=== PATIENT | female | born 1985 | race Caucasian/White ===

== ENCOUNTER → 2021-09-02 12:27 | Outpatient (CLI) | payer MEDICARE, MEDICAID, SELFPAY ==
[2021-09-02 13:58] LABS: Free T4, Direct Thyroxine 0.96 ng/dL (0.78-2.19)
[2021-09-02 14:00] LABS: Prolactin 21.2 ng/mL (3.0-18.6)
[2021-09-02 14:12] LABS: Thyroid Stimulating Hormone 4.11 uIU/mL (0.47-4.68)
[2021-09-02 19:11] LABS: Follicle Stimulating Hormone 48.9 mIU/mL
== END ==
PROVIDERS: Referring Provider Obstetrics & Gynecology; Visit Provider Obstetrics & Gynecology
DX: N91.1 Secondary amenorrhea (principal)
CPT/HCPCS: 36415; 83001; 84146; 84439; 84443

== ENCOUNTER → 2021-10-06 10:27 | Outpatient (CLI) | payer OTHER, SELFPAY ==
[2021-10-06 13:02] LABS: Prolactin 11.6 ng/mL (3.0-18.6)
== END ==
PROVIDERS: Referring Provider Obstetrics & Gynecology; Visit Provider Obstetrics & Gynecology
DX: N91.1 Secondary amenorrhea (principal)
CPT/HCPCS: 36415; 83001; 84146

== ENCOUNTER 2022-02-09 14:00 | Emergency (ER) | payer MEDICARE, MEDICAID, SELFPAY ==
[2022-02-09 14:08] VITALS: BP 154/94; PULSE 89; RESP 18; TEMP 36.3; O2SAT 100; BMI 40.7
--- NOTE | 2022-02-09 14:12 | DI.RAD.S_ITS ---
PROCEDURE: XR FOREARM LT 2V INDICATIONS: FOOSH TECHNIQUE: 2 views of the forearm were acquired. COMPARISON: None. FINDINGS: Bones: There is a nondisplaced fracture through radial head extending to its articulation with capitellum. No other fracture or dislocation is seen. No suspicious bony lesions. Soft tissues: No suspicious soft tissue calcifications or masses. Displacement of anterior and posterior fat pad is seen consistent with moderate to large joint effusion. IMPRESSION: Nondisplaced radial head fracture. No other fracture or dislocation is seen in left forearm. Moderate to large left elbow joint effusion. Dictated by: Aureliano Silva M.D. on 02/09/2022 at 14:58 Approved by: Aureliano Silva M.D. on 02/09/2022 at 14:59
--- NOTE | 2022-02-09 14:12 | DI.RAD.S_ITS ---
PROCEDURE: XR ELBOW LT MIN 3V INDICATIONS: FOOSH TECHNIQUE: 4 views of the elbow were acquired. COMPARISON: None. FINDINGS: Bones: Nondisplaced fractures involving radial head is seen extending to its articulation with capitellum. No other fracture or dislocation. No suspicious bony lesions. Soft tissues: Large joint effusion is seen. No suspicious soft tissue calcifications. IMPRESSION: Nondisplaced radial head fracture with moderate to large elbow joint effusion. Dictated by: Aureliano Silva M.D. on 02/09/2022 at 15:00 Approved by: Aureliano Silva M.D. on 02/09/2022 at 15:00
[2022-02-09] MEDS: OXYCODONE/ACETAMINOPHEN 5/325 TABLET 1 TAB PO (15:15)
[2022-02-09] MEDS: KETOROLAC 30 MG/ML VIAL 15 MG IM (15:15)
[2022-02-09] MEDS: OXYCODONE/APAP 5/325 PREPACK 1 BOTTLE MISC (15:46)
--- NOTE | 2022-02-09 18:32 | ED.UPPEXIN ---
HPI - Extremity Injury (Upper) <WHITNEY Andrews - Last Filed: 02/09/22 18:41> General Chief Complaint: Extremity Injury, Upper Stated Complaint: Fall, Left Arm Pain Time Seen by Provider: 02/09/22 15:03 Source: patient Mode of arrival: Ambulatory History of Present Illness HPI narrative: This is a 36-year-old left-handed female who presents to the emergency department after she had a fall down this depth and odor left hand out to catch herself and states that she had sudden elbow pain afterwards. She states it is painful at rest, cannot flex and extend without significant pain, endorses swelling in her elbow, states that she took ibuprofen 200 mg this morning. She denies any other medications, she denies any sensation changes distal to her left elbow, denies any wrist pain or shoulder pain. She denies any loss of consciousness or other injury. She is able to wiggle her fingertips, she denies any numbness or tingling in her arm. 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 30 days #90 caps oxycodone-acetaminophen 5 mg-325 1 tab PO TID PRN pain #10 tabs 02/09/22 mg tablet (Percocet) Allergies Allergy/AdvReac Type Severity Reaction Status Date / Time Cephalosporins Allergy Severe RASH Verified 02/09/22 14:08 [CEPHALOSPORINS] cephalexin Allergy Mild face Verified 02/09/22 14:08 turned red and hot Penicillins Allergy Mild HIVES Verified 02/09/22 14:08 adhesive Allergy Unknown RASH Verified 02/09/22 14:08 W/PLASTIC TAPE; CAN USE PAPER OR SILK TAPE hydrocodone Allergy Unknown NO Verified 02/09/22 14:08 VICODIN, CAN TAKE HYDROCODONE & TYLENOL, RASH Review of Systems <WHITNEY Andrews - Last Filed: 02/09/22 18:41> Review of Systems Narrative: General: denies fever, chills Head/Neck: denies headache, neck pain Eyes: denies visual changes, eye pain Cardio: denies chest pain, palpitations Respiratory: denies shortness of breath, cough GI: denies abdominal pain, nausea, vomiting, or diarrhea : denies dysuria, hematuria or flank pain MSK: Endorses left elbow pain, swelling, denies any muscle weakness or sensation changes distally Skin: denies rash, itching or open wound Neuro: denies numbness, tingling, dizziness Patient History <WHITNEY Andrews - Last Filed: 02/09/22 18:41> Medical History Vaginal delivery Surgical History History of left salpingo-oophorectomy Social History Smoking Status: Current every day smoker Smoking Status: Current every day smoker tobacco type: cigarettes and vaping alcohol intake frequency: holidays/special occasions only Substance Use Type: marijuana Exam <WHITNEY Andrews - Last Filed: 02/09/22 18:41> Narrative Exam Narrative: Independently reviewed vitals signs and nursing notes. General: cooperative, comfortable, in no acute distress, well groomed Head: atraumatic, symmetrical facial expressions Neck: supple Eyes: equal round and reactive, EOMI, conjunctiva normal Nose: nares patent, no rhinorrhea Mouth/Throat: moist mucus membranes Cardiovascular: regular rate and rhythm, no peripheral edema, warm extremities Respiratory: normal effort, able to speak in complete sentences, no audible wheezing, stridor, or rales. No retractions or tachypnea. GI: abdomen soft, nontender to palpation, nondistended, no masses, no exquisite tenderness with exam, without guarding or rebound. MSK: moves all extremities, neurovascularly intact, left shoulder without any tenderness, left wrist left hand and left fingers all without any abnormal findings, left elbow is edematous, tenderness on the anterior aspect radial side, pain in her forearm when wiggling fingers, radial pulse is 2 +, no open wound, ecchymosis present on the anterior aspect of her elbow Skin: brisk capillary refill, no rash, no erythema Neuro: normal speech and cognition, A&O x3 Psych: mental status is grossly normal, congruent mood, normal affect, pleasant and cooperative Initial Vital Signs Initial Vital Signs: Vital Signs Temperature 97.4 F L 02/09/22 14:08 Pulse Rate 89 02/09/22 14:08 Respiratory Rate 18 02/09/22 14:08 Blood Pressure 154/94 H 02/09/22 14:08 Pulse Oximetry 100 02/09/22 14:08 Oxygen Delivery Method 02/09/22 14:08 <Flavia Moore DO - Last Filed: 02/10/22 07:37> Initial Vital Signs Initial Vital Signs: Vital Signs Temperature 97.4 F L 02/09/22 14:08 Pulse Rate 89 02/09/22 14:08 Respiratory Rate 18 02/09/22 14:08 Blood Pressure 154/94 H 02/09/22 14:08 Pulse Oximetry 100 02/09/22 14:08 Oxygen Delivery Method 02/09/22 14:08 Procedures <WHITNEY Andrews - Last Filed: 02/09/22 18:41> Orthopedic Splinting/Casting Injury #1: Side: left Upper Extremity Injury Location: elbow Upper Extremity Immobilizer: sling/shoulder immobilizer and posterior splint Post splinting neuro exam: intact and no change Post splinting vascular exam: intact Placed by: Provider Additional Comments: Patient was fitted in a sling after posterior long-arm splint applied. Copious amount of padding was used especially over the elbow, 4 in ortho glass was used on the posterior and wrapped with 3 in [place] wrap at approximately 100?. Patient tolerated well. Course <WHITNEY Andrews - Last Filed: 02/09/22 18:41> Orders Ordered: Discontinued Medications Ketorolac Tromethamine (Ketorolac 30 Mg/Ml Vial) 15 mg IM NOW ONE Stop: 02/09/22 15:09 Last Admin: 02/09/22 15:15 Dose: 15 mg Documented By: CARMEN Oxycodone/Acetaminophen (Oxycodone/Acetaminophen 5/325 Tablet) 1 tab PO NOW ONE Stop: 02/09/22 15:09 Last Admin: 02/09/22 15:15 Dose: 1 tab Documented By: CARMEN Oxycodone/Acetaminophen (Oxycodone/Apap 5/325 Prepack) 1 bottle MISC SEEINSTR ONE Stop: 02/09/22 15:36 Last Admin: 02/09/22 15:46 Dose: 1 bottle Documented By: AT Vital Signs Vital signs: Vital Signs - 8 hr 02/09/22 14:08 Temperature 97.4 F L Pulse Rate 89 Respiratory Rate 18 Blood Pressure 154/94 H Pulse Oximetry 100 Oxygen Delivery Method Room Air <Flavia Moore DO - Last Filed: 02/10/22 07:37> Orders Ordered: Discontinued Medications Ketorolac Tromethamine (Ketorolac 30 Mg/Ml Vial) 15 mg IM NOW ONE Stop: 02/09/22 15:09 Last Admin: 02/09/22 15:15 Dose: 15 mg Documented By: EB Oxycodone/Acetaminophen (Oxycodone/Acetaminophen 5/325 Tablet) 1 tab PO NOW ONE Stop: 02/09/22 15:09 Last Admin: 02/09/22 15:15 Dose: 1 tab Documented By: EB Oxycodone/Acetaminophen (Oxycodone/Apap 5/325 Prepack) 1 bottle MISC SEEINSTR ONE Stop: 02/09/22 15:36 Last Admin: 02/09/22 15:46 Dose: 1 bottle Documented By: AT Vital Signs Vital signs: Vital Signs - 8 hr 02/09/22 14:08 Temperature 97.4 F L Pulse Rate 89 Respiratory Rate 18 Blood Pressure 154/94 H Pulse Oximetry 100 Oxygen Delivery Method Room Air MDM - Extremity Injury (Upper) <Aurora Mendes [facility] - Last Filed: 02/09/22 18:41> Imaging Data Extremity x-ray #1: Radiologist's Impression: PROCEDURE:? XR FOREARM LT 2V ? INDICATIONS:? FOOSH ? TECHNIQUE:? 2 views of the forearm were acquired.? ? COMPARISON:? None. ? FINDINGS:? ? Bones:? There is a nondisplaced fracture through radial head extending to its articulation with capitellum.? No other fracture or dislocation is seen.? No suspicious bony lesions.? ? Soft tissues:? No suspicious soft tissue calcifications or masses.? Displacement of anterior and posterior fat pad is seen consistent with moderate to large joint effusion. ? ? IMPRESSION:? Nondisplaced radial head fracture.? No other fracture or dislocation is seen in left forearm.? Moderate to large left elbow joint effusion. ? ? ? Dictated by: Aureliano Silva M.D. on 02/09/2022 at 14:58 ? ? Approved by: Aureliano Silva M.D. on 02/09/2022 at 14:59 ? Extremity x-ray #2: Radiologist's Impression: PROCEDURE:? XR ELBOW LT MIN 3V ? INDICATIONS:? FOOSH ? TECHNIQUE:? 4 views of the elbow were acquired.? ? COMPARISON:? None. ? FINDINGS:? ? Bones:? Nondisplaced fractures involving radial head is seen extending to its articulation with capitellum.? No other fracture or dislocation.? No suspicious bony lesions.? ? Soft tissues:? Large joint effusion is seen.? No suspicious soft tissue calcifications.? ? ? IMPRESSION:? Nondisplaced radial head fracture with moderate to large elbow joint effusion. ? ? Dictated by: Aureliano Silva M.D. on 02/09/2022 at 15:00 ? ? Approved by: Aureliano Silva M.D. on 02/09/2022 at 15:00 ? MDM Narrative Medical decision making narrative: This is a 36-year-old female who presents to the emergency department after a fall down the stairs with a FOOSH injury of her left arm. She is left handed, states that when she cut herself with her left hand her elbow was immediately painful. Elbow x-ray shows a nondisplaced radial head fracture with moderate to large elbow joint effusion. Patient was not able to flex to 90? for her splint placement, she was splinted approximately at 100-110 degrees and placed in a sling afterwards. She states that this feels much better, 4 in ortho glass was used, CSM is intact distally, she is neurovascularly intact with a closed, nondisplaced radial head fracture and a moderate elbow joint effusio. An Orthopedic consult was placed for the on-call orthopedist-Dr. Almeida, and patient understands to follow-up at [facility] in one week for recheck. Strict return precautions were discussed, she was given Percocet for pain, given a prepack in addition to a prescription since pharmacy was closed. Patient does not have any wrist or shoulder pain. Patient is appropriate and amenable to discharge home. Vital signs are stable on repeat examination is unremarkable. Patient has been informed of results. Patient has been given strict return to ER precautions for any new or worsening symptoms. Patient understands to follow up closely with outpatient providers as instructed. Patient understands plan and agrees to discharge home. All questions and concerns answered at this time. Discharge Plan Departure Patient Disposition: Home Clinical Impression: Effusion of elbow joint, left Closed fracture of radial head Qualifiers: Encounter type: initial encounter Fracture alignment: nondisplaced Laterality: left Qualified Code(s): S52.125A - Nondisplaced fracture of head of left radius, initial encounter for closed fracture Instructions: Forearm Fracture, DI for Elbow Fracture Activity Restrictions/Additional Instructions: *You have been diagnosed with a nondisplaced proximal radial head fracture. Please follow-up with orthopedics in one week. Call and schedule appointment tomorrow, wear the sling at all times to help hold up your now have your arm. Take ibuprofen 6-800 mg every 8 hours as needed with food and water for pain, you may take Percocet in addition to this with food and water. I am sorry this happened, I hope you start feeling better soon. Keep it elevated often, ice it as much as possible, after the hard splint has formed, you may adjust the [place] bandage as necessary. Please return to the emergency department if you develop numbness or tingling, worsening pain, or any other concerns. CONTROLLED SUBSTANCE DISCHARGE (Narcotic/benzodiazepine/Flexeril/Phenergan) 1. You have been prescribed narcotic medications, it does have acetaminophen/Tylenol/paracetamol in it, DO NOT TAKE MORE THAN 4,00mg in 24 hours of Tylenol. *Tramadol does not contain tylenol. 2. Please understand that we cannot provide further refills of narcotics, benzodiazepines or controlled substances through the ED and her pain management will need to be through your provider. 3. While on these medications you cannot drive or operate heavy machinery. 4. You cannot sign legal documents or perform any duties such as this. 5. As long as you are taking opiate pain medications he should also be taking a stool softener such as Colace, Dulcolax, MiraLAX or prune juice, to help avoid constipation. *What to do: *Please continue to take your regular medications as directed. [x ] New medication prescriptions sent to your pharmacy: [ [facility]] [ ] New medication written as a paper prescription [ ] No new medications given *Please follow up with your primary care provider in 2-3 days, call for an appointment. Let them know you were seen in the Emergency Department and that we asked that you be seen for follow-up. We will electronically transmit a record of today's note if your PCP is in our system *If you do not have a primary care provider please contact [phone] to establish care with one of the [facility] primary care providers. *Return to Emergency Department if you should have any new, worsening or concerning symptoms, such as [fever greater than 101F, chills, worsening pain, persistent vomiting or other bothersome symptoms] Prescriptions: New oxycodone-acetaminophen [Percocet] 5-325 mg tablet 1 tab PO TID PRN (Reason: pain) Qty: 10 0RF No Action buspirone 7.5 mg tablet 7.5 mg PO ONCE estradiol 0.1 mg/24 hr patch semiweekly 1 patch transdermal 2XW Qty: 8 0RF Rx Instructions: apply 1 patch for 3 days alternating with 1 patch for 4 days each week. progesterone micronized 100 mg capsule 100 mg PO DAILY 30 Days Qty: 90 4RF Rx Instructions: Take once daily. Referrals: Renetta Nichols ARNP [Primary Care Provider] - Jeronimo Almeida MD [Physician] - 5-7 days Visit Report Forms: Patient Portal/API <Flavia Moore DO - Last Filed: 02/10/22 07:37> [facility] ED Attending Tirso Attestation: I was immediately available in the department for consultation. Documentation has been reviewed. I agree with assessment and plan.
== END 2022-02-09 15:50 | disposition home or self-care (01) ==
PROVIDERS: Emergency Provider Nurse Practitioner Critical Care Medicine; PCP Nurse Practitioner
DX: S52.125A Nondisplaced fracture of head of left radius, initial encounter for closed fracture (principal); M25.422 Effusion, left elbow; W19.XXXA Unspecified fall, initial encounter
CPT/HCPCS: 73080; 73090; 96372; 99283; 99284; J1885